=== PATIENT | male | born 1950 | race Caucasian/White ===

== ENCOUNTER 2019-01-10 13:28 | Inpatient (IN) | payer MEDICARE ==
[~2019-01-10] VITALS: Ht 170.2 cm; Wt 60.3 kg
[~2019-01-10 13:28] MED LIST: AMLO5TAB4 PO; DARU400T2 PO; EMTR1TAB11 PO; RITO100T PO; ROSU10TA PO; VALA100044 PO; intelence PO; tivicay PO
[2019-01-10 15:07] LABS: CHLORIDE 94 mEq/L (98-107)
[2019-01-10 15:10] LABS: HEMOGLOBIN. 10.5 g/dL (14.0-18.0); MEAN CORPUSCULAR HEMOGLOBIN 40.7 pg (28.0-32.0); MEAN CORPUSCULAR VOLUME 120.2 fL (80.0-94.0); MEAN PLATELET VOLUME 7.1 fl (7.4-10.4); PLATELET 397 x1000/uL (130-400); RED BLOOD CELL COUNT 2.58 mill/uL (4.7-6.1); RED CELL DISTRIBUTION WIDTH 14.2 % (11.6-14.6)
[2019-01-10 15:11] LABS: ETHANOL BLOOD < 10 mg/dL
[2019-01-10 16:04] LABS: PLATELET ESTIMATE NORMAL
[2019-01-10 17:32] LABS: CLARITY URINE CLEAR (CLEAR); COLOR URINE YELLOW (YELLOW); KETONES URINE NEGATIVE (NEGATIVE); LEUKOCYTE ESTERASE URINE NEGATIVE (NEGATIVE); NITRITE URINE NEGATIVE (NEGATIVE); OCCULT BLOOD URINE NEGATIVE (NEGATIVE); PROTEIN URINE 2+ (NEGATIVE); SPECIFIC GRAVITY URINE 1.015 (1.005-1.030)
[2019-01-10 17:39] LABS: *AMPHETAMINES SCREEN URINE NEGATIVE (NEGATIVE); *BARBITURATES SCREEN URINE NEGATIVE (NEGATIVE)
[2019-01-10 17:40] LABS: *BENZODIAZEPINES SCREEN URINE NEGATIVE (NEGATIVE); *COCAINE SCREEN URINE NEGATIVE (NEGATIVE); CANNABINOID URINE SCREEN NEGATIVE (NEGATIVE); METHADONE URINE SCREEN NEGATIVE (NEGATIVE); OPIATES URINE SCREEN NEGATIVE (NEGATIVE); PHENCYCLIDINE URINE SCREEN NEGATIVE (NEGATIVE)
[2019-01-11] MEDS ORDERED: NA PHOS,M-B/NA PHOS,DI-BA ENEMA 118ML PR PRN (11:30)
[2019-01-11] MEDS ORDERED: ONDANSETRON HCL 4MG/2ML INJ IV PRN (11:30)
[2019-01-11] MEDS ORDERED: LORAZEPAM 0.5MG TABLET PO PRN (11:30)
[2019-01-11] MEDS ORDERED: HYDROCODONE/ACETAMINOPHEN 5/325MG TABLET PO PRN (11:30)
[2019-01-11] MEDS ORDERED: ACETAMINOPHEN 650MG SUPP PR PRN (11:30)
[2019-01-11] MEDS ORDERED: IPRATROPIUM/ALBUTEROL 0.5-3(2.5)MG/3ML NEB INH PRN (11:30)
[2019-01-11] MEDS ORDERED: CLONIDINE 0.1MG TABLET PO PRN (11:30)
[2019-01-11] MEDS ORDERED: MAGNESIUM/ALUMINUM HYDROXIDE/SIMETHICONE 30ML UDC PO PRN (11:30)
[2019-01-11] MEDS ORDERED: ACETAMINOPHEN 325MG TABLET PO PRN (11:30)
[2019-01-11] MEDS ORDERED: GUAIFENESIN 200MG/10ML SUGAR FREE UDC PO PRN (11:30)
[2019-01-11] MEDS ORDERED: DOCUSATE SODIUM 100MG CAPSULE PO PRN (11:30)
[2019-01-11] MEDS ORDERED: DIPHENHYDRAMINE 50MG/ML VIAL IV PRN (11:30)
[2019-01-11 13:21] LABS: HEMATOCRIT 31.7 % (42.0-52.0); HEMOGLOBIN 10.6 g/dL (14.0-18.0); MEAN CORPUSCULAR HEMOGLOBIN 40.1 pg (28.0-32.0); PLATELET 482 x1000/uL (130-400); RED BLOOD CELL COUNT 2.65 mill/uL (4.7-6.1); RED CELL DISTRIBUTION WIDTH 14.4 % (11.6-14.6)
[2019-01-11 13:24] LABS: PROTHROMBIN TIME 10.2 sec (9.1-11.1)
[2019-01-11 13:49] LABS: HEPATITIS B SURFACE ANTIGEN NEGATIVE
[2019-01-11 14:19] LABS: HEPATITIS A AB IGM NEGATIVE (NEGATIVE)
[2019-01-11] MEDS ORDERED: FOLIC ACID/VITAMIN B COMP W-C TABLET PO NR (15:15)
[2019-01-11] MEDS ORDERED: PIPERACILLIN/TAZ 2.25G PREMIX 50 ML IV SCH (15:30)
[2019-01-11] MEDS ORDERED: SEVELAMER CARBONATE 800 MG TABLET PO SCH (17:00)
[2019-01-11 17:04] VITALS: BP 102/48
[2019-01-11] MEDS ORDERED: DOXYCYCLINE HYCLATE 100MG CAPSULE PO NR (17:30)
[2019-01-11] MEDS ORDERED: VALA100044 MT (17:55)
[2019-01-11] MEDS ORDERED: CALC667T5 MT (17:55)
[2019-01-11] MEDS ORDERED: BICT1TAB PO (17:55)
[2019-01-11] MEDS ORDERED: NEPVIT MT (17:55)
[2019-01-11] MEDS: SEVELAMER CARBONATE 800 MG TABLET PO SCH (18:16)
[2019-01-11] MEDS ORDERED: VANCOMYCIN 1250MG in DEXTROSE 5% WATER 250ML IV NR (18:30)
[2019-01-11 20:00] VITALS: BP 111/62
[2019-01-11] MEDS: TOBRAMYCIN 0.3% OPHTH DROPS 5ML LEFTEYE SCH ×2 (21:45→23:05)
[2019-01-11] MEDS: PIPERACILLIN/TAZ 2.25G PREMIX 50 ML IV SCH (23:04)
[2019-01-12] VITALS (7 sets, daily range): BP systolic 106–120; BP diastolic 64–77
[2019-01-12] MEDS: TOBRAMYCIN 0.3% OPHTH DROPS 5ML LEFTEYE SCH ×6 (03:50→23:39)
[2019-01-12] MEDS: PIPERACILLIN/TAZ 2.25G PREMIX 50 ML IV SCH ×3 (05:46→23:38)
[2019-01-12 07:58] LABS: HEMATOCRIT. 30.4 % (42.0-52.0); HEMOGLOBIN. 10.2 g/dL (14.0-18.0); MEAN CORPUSCULAR HEMOGLOBIN 40.2 pg (28.0-32.0); MEAN CORPUSCULAR VOLUME 119.8 fL (80.0-94.0); MEAN PLATELET VOLUME 7.4 fl (7.4-10.4); PLATELET 502 x1000/uL (130-400); RED BLOOD CELL COUNT 2.54 mill/uL (4.7-6.1); RED CELL DISTRIBUTION WIDTH 14.5 % (11.6-14.6)
[2019-01-12 07:58] LABS: CHLORIDE 98 mEq/L (98-107)
[2019-01-12 08:05] LABS: PHOSPHORUS 5.4 mg/dL (2.5-4.9)
[2019-01-12 08:06] LABS: HDL CHOLESTEROL 24 mg/dL (40-59)
[2019-01-12 08:07] LABS: LDL CHOLESTEROL 122 mg/dL (5-100)
[2019-01-12 08:08] LABS: TOTAL IRON BINDING CAPACITY 142 ug/dL (250-450)
[2019-01-12] MEDS: SEVELAMER CARBONATE 800 MG TABLET PO SCH (08:08)
[2019-01-12] MEDS: FOLIC ACID/VITAMIN B COMP W-C TABLET PO SCH (08:08)
[2019-01-12] MEDS: DOXYCYCLINE HYCLATE 100MG CAPSULE PO SCH ×2 (08:08→16:55)
[2019-01-12 08:11] LABS: T4 FREE 1.05 ng/dL (0.76-1.46)
[2019-01-12 09:11] LABS: ABSOLUTE EOSINOPHILS 0.1 x10E3/uL (0.0-0.4); ABSOLUTE LYMPHOCYTES 1.2 x10E3/uL (0.7-3.1); ABSOLUTE MONOCYTES 0.4 x10E3/uL (0.1-0.9); ABSOLUTE NEUTROPHILS 19.1 x10E3/uL (1.4-7.0); BASOPHILS 0 % (Not Estab.); HEMATOCRIT 31.1 % (37.5-51.0); HEMOGLOBIN 10.6 g/dL (13.0-17.7); IMMATURE GRANULOCYTES 0 % (Not Estab.); LYMPHOCYTES 6 % (Not Estab.); MEAN CORPUSCULAR HEMOGLOBIN 39.8 pg (26.6-33.0); MEAN CORPUSCULAR HGB CONC. 34.1 g/dL (31.5-35.7); MEAN CORPUSCULAR VOLUME 117 fL (79-97); MONOCYTES 2 % (Not Estab.); NEUTROPHILS 92 % (Not Estab.); PLATELETS 505 x10E3/uL (150-379); RBC 2.66 x10E6/uL (4.14-5.80); WBC 20.8 x10E3/uL (3.4-10.8)
[2019-01-12 10:20] LABS: VITAMIN B12 SERUM 1070 pg/mL (211-911)
[2019-01-12 10:24] LABS: FOLIC ACID (FOLATE) SERUM > 20.00 ng/mL (>5.38)
[2019-01-12 12:45] LABS: PLATELET ESTIMATE INCREASED
[2019-01-12 14:18] LABS: % CD 3 POS. LYMPHOCYTES 83.7 % (57.5-86.2); % CD 4 POS. LYMPHOCYTES 24.4 % (30.8-58.5); % CD 8 POS. LYMPH 58.7 % (12.0-35.5); ABSOLUTE CD 3 1004 /uL (622-2402); ABSOLUTE CD 4 HELPER 293 /uL (359-1519); ABSOLUTE CD 8 SUPPRESSOR 704 /uL (109-897); CD4/CD8 RATIO 0.42 (0.92-3.72)
[2019-01-12] MEDS: CALCIUM ACETATE 667MG CAPSULE PO SCH ×2 (14:26→16:54)
[2019-01-12] MEDS: FERROUS SULFATE 325MG TABLET PO SCH ×2 (14:26→16:54)
[2019-01-12] MEDS ORDERED: VANCOMYCIN 1 G PREMIX 200 ML IV SCH (15:00)
[2019-01-12] MEDS ORDERED: LORAZEPAM 0.5MG TABLET PO PRN (15:30)
[2019-01-12] MEDS ORDERED: ATORVASTATIN CALCIUM 10MG TABLET PO SCH (21:00)
[2019-01-13] VITALS: BP 103/55
[2019-01-13 04:00] VITALS: BP 94/57
[2019-01-13] MEDS: TOBRAMYCIN 0.3% OPHTH DROPS 5ML LEFTEYE SCH ×4 (04:00→16:59)
[2019-01-13 08:00] VITALS: BP 99/62
[2019-01-13] MEDS: FOLIC ACID/VITAMIN B COMP W-C TABLET PO SCH (08:14)
[2019-01-13] MEDS: CALCIUM ACETATE 667MG CAPSULE PO SCH ×3 (08:15→16:58)
[2019-01-13] MEDS: FERROUS SULFATE 325MG TABLET PO SCH ×3 (08:15→16:59)
[2019-01-13] MEDS: DOXYCYCLINE HYCLATE 100MG CAPSULE PO SCH ×2 (08:15→16:59)
[2019-01-13] MEDS: PIPERACILLIN/TAZ 2.25G PREMIX 50 ML IV SCH ×2 (08:16→17:09)
[2019-01-13 10:09] LABS: HEMATOCRIT. 30.3 % (42.0-52.0); HEMOGLOBIN. 10.3 g/dL (14.0-18.0); MEAN CORPUSCULAR HEMOGLOBIN 40.7 pg (28.0-32.0); MEAN CORPUSCULAR VOLUME 119.9 fL (80.0-94.0); MEAN PLATELET VOLUME 7.2 fl (7.4-10.4); PLATELET 504 x1000/uL (130-400); RED BLOOD CELL COUNT 2.53 mill/uL (4.7-6.1); RED CELL DISTRIBUTION WIDTH 14.4 % (11.6-14.6)
[2019-01-13 12:00] VITALS: BP 98/57
[2019-01-13 15:08] LABS: HIV 1 ABS Positive (Negative); HIV 2 ABS Negative (Negative); HIV SCREEN 4G Reactive (Non Reactive); INTERPRETATION HIV-1 Positive (.)
[2019-01-13 16:00] VITALS: BP 100/60
[2019-01-13 16:10] LABS: PLATELET ESTIMATE INCREASED
[2019-01-13 20:00] VITALS: BP 102/52
[2019-01-13] MEDS ORDERED: EPOETIN ALFA 4000UNITS/ML VIAL SUBCUT SCH (21:00)
[2019-01-14] MEDS ORDERED: PARICALCITOL 2 MCG/ML VIAL IV SCH (09:00)
[2019-01-16 19:06] LABS: 25-HYDROXY VITAMIN D3 51 ng/mL (.)
[2019-01-17 13:06] LABS: B HENSELAE IGG Negative titer (Neg:<1:320); B HENSELAE IGM Negative titer (Neg:<1:100); B QUINTANA IGG Negative titer (Neg:<1:320); B QUINTANA IGM Negative titer (Neg:<1:100)
== END 2019-01-13 23:20 | DRG 871 ==
LOC: ER 14:12 → EDBEDREQ 14:49 → EDBEDREQTM 14:49 → EDBEDREQ 17:24 → 8WST 17:46 → EDBEDREQ 17:53 → ENRESERV 01-11 07:07 → CANRESERV 01-11 07:07 → EDRESERV 01-11 07:07 → ENRESERV 01-11 14:47
PROVIDERS: ADMIT Internal Medicine; ATTEND Internal Medicine
PROC: 5A1D70Z Performance of Urinary Filtration, Intermittent, Less than 6 Hours Per Day (ICD-10-PCS; principal; 2019-01-11)
DX: A41.9 Sepsis, unspecified organism (principal); N18.6 End stage renal disease; E46 Unspecified protein-calorie malnutrition; G93.40 Encephalopathy, unspecified; N25.81 Secondary hyperparathyroidism of renal origin; B19.10 Unspecified viral hepatitis B without hepatic coma; R47.01 Aphasia; R26.9 Unspecified abnormalities of gait and mobility; D72.829 Elevated white blood cell count, unspecified; E86.0 Dehydration; E55.9 Vitamin D deficiency, unspecified; B19.20 Unspecified viral hepatitis C without hepatic coma; D50.9 Iron deficiency anemia, unspecified; D53.9 Nutritional anemia, unspecified; B00.9 Herpesviral infection, unspecified; R26.2 Difficulty in walking, not elsewhere classified; E11.22 Type 2 diabetes mellitus with diabetic chronic kidney disease; E78.5 Hyperlipidemia, unspecified; Z22.322 Carrier or suspected carrier of Methicillin resistant Staphylococcus aureus; Z80.6 Family history of leukemia; Z85.828 Personal history of other malignant neoplasm of skin; Z87.891 Personal history of nicotine dependence; Z99.2 Dependence on renal dialysis; Z79.899 Other long term (current) drug therapy; Z68.20 Body mass index [BMI] 20.0-20.9, adult
CPT/HCPCS: 36415; 70551; 71045; 80048; 80061; 80202; 80305; 82306; 82550; 82607; 82746; 82962; 83036; 83540; 83550; 84100; 84439; 84443; 85027; 86359; 86360; 86592; 86611; 86618; 86701; 86702; 86705; 86709; 86757; 86803; 87340; 87389; 87804; 87899; 93005; 93306; 93970; 97162; 99291; J1200; J2501; J2543; J3370; J7060